=== PATIENT | male | born 1990 | race Hispanic/Latino ===

== ENCOUNTER 2019-11-18 13:10 | Emergency (ER) | payer BC ==
[2019-11-18 14:00] LABS: RAPID GROUP A STREP NEGATIVE (NEGATIVE)
[2019-11-18] MEDS ORDERED: IBUPROFEN 800 MG TAB ONE (14:39)
== END 2019-11-18 14:45 | disposition home or self-care (01) ==
LOC: EDH 13:10
DX: J10.1 Influenza due to other identified influenza virus with other respiratory manifestations (principal); Z88.1 Allergy status to other antibiotic agents; Z90.49 Acquired absence of other specified parts of digestive tract
CPT/HCPCS: 87804; 87880